=== PATIENT | male | born 2000 | race Caucasian/White ===

== ENCOUNTER 2023-09-02 22:57 | Emergency (ER) | payer SELFPAY ==
[2023-09-02 23:05] VITALS: BP 120/69; PULSE 84; RESP 20; TEMP 98.5; BMI 27.8
== END 2023-09-03 03:27 | disposition home or self-care (01) ==
LOC: JER 22:57
DX: L53.9 Erythematous condition, unspecified (principal); M79.662 Pain in left lower leg; R50.9 Fever, unspecified; L03.116 Cellulitis of left lower limb
CPT/HCPCS: 99283-25